=== PATIENT | female | born 1965 | race Two or more races ===

== ENCOUNTER → 2023-03-11 09:44 | Outpatient (REF) | payer BC, SELFPAY ==
--- NOTE | 2023-03-11 10:12 | CA_ITS ---
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 The visually estimated ejection fraction is between 65-70%. Diastolic function is normal for age. Peak GLS is -21.6%, which is within normal limits. Right Ventricle Normal right ventricular cavity size and systolic function. Atria Both atria are normal in size. There is no evidence of interatrial shunt. Aortic Valve Normal aortic valve structure and function. There is no aortic valve stenosis. There is no aortic valve regurgitation. Mitral Valve Normal mitral valve structure and function. There is trace mitral valve regurgitation. There is no mitral valve stenosis. Pulmonic Valve The pulmonic valve is normal. There is trace pulmonic valve regurgitation. Tricuspid Valve Normal tricuspid valve structure. Tricuspid regurgitation envelope is inadequate for calculation of right ventricular systolic pressure. Normal right atrial pressure. Great Vessels The visualized portions of the pulmonary artery and branches are normal. Venous The inferior vena cava is normal in size and collapses greater than 50% with inspiration. Pericardium/Pleural There is no evidence of pericardial effusion. Prior Study Comparison No prior study available for comparison. Measurements 2D Linear Measurements IVSd: 0.85 0.6-0.9/0.6-1.0 cm LVIDd: 4.41 3.9-5.3/4.2-5.9 cm LVIDd Index: 2.69 2.4-3.2/2.2-3.1 cm/m2 LVIDs: 3.29 2.0-3.6 cm LVPWd: 0.67 0.7-1.1 cm LA Diam: 3.20 2.7-3.8/3.0-4.0 cm LAIDs Index: 1.95 1.5-2.3 cm/m2 LV Mass: 127.67 67-162/88-224 g LV Mass Index: 77.85 43-95/49-115 g/m2 LVOT Diam: 2.00 3.0+(-)1.3 cm 2D Systolic Function EF 4C: 68.60 >55% EF 2C: 64.00 >55% EF BiP: 66.10 >55% Mitral Valve MV Pk E: 0.54 MV PK A: 0.43 MV Decel Time: 244.00 E/A: 1.20 E'Lateral: 9.57 E'Medial: 5.22 E/E' Med: 10.30 E/E' Lat: 5.60 PHT: 71.00 MVA PHT: 3.10 Decel Reagan: 2.19 Aortic Valve AoV Pk Jacob: 1.38 AoV Mn Jacob: 0.95 AoV VTI: 0.31 AoV Pk Grad: 8.00 Aov Mn Grad: 4.00 JASVIR Cont.VTI: 2.06 LVOT LVOT Pk Jacob: 1.01 LVOT Mn Jacob: 0.61 LVOT VTI: 0.21 LVOT Pk Grad: 4.00 LVOT Mn Grad: 2.00 LVOT Diam: 2.00 LVOT Area: 3.14 Diastolic Function MV Pk E: 0.54 MV Pk A: 0.43 E/A: 1.20 E'Medial: 5.22 E/E' Med: 10.30 E' Laterial: 9.57 E/E' Lat: 5.60 Right Ventricle TAPSE (mm): 23.90 TVS' Jacob: 11.90 Tricuspid Valve RA Press: 3.00 Great Vessels Aorta Sinus of Valsalva: 3.07 2.0-3.5 cm Ao Asc: 3.50 2.1-3.4 cm Ao Arch: 2.70 Updated in Other Vendor System with Status of Final Carl Madison MD electronically signed on 03/12/2023 2:45:16 PM with status of Final
--- NOTE | 2023-03-11 10:12 | HM_ITS ---
Conclusion: 1. Patient was monitored for total period of 2 days and 23 hours 2. Baseline was normal sinus with average heart of 78 beats per minute 3. No significant pauses noted 4. Rare PACs and PVCs noted 5. Patient reported 4 events with symptoms of heart flash, flutter, correlating with normal sinus rhythm MTDD
== END ==
LOC: HO.CARD 09:44
PROVIDERS: PCP Internal Medicine; Visit Provider Psychiatry & Neurology Neurology
DX: R55 Syncope and collapse (principal)
CPT/HCPCS: 93242; 93306; 93356

== ENCOUNTER → 2023-03-11 10:12 | Outpatient (BNV) | payer BC, SELFPAY | PROVIDERS: PCP Internal Medicine; Visit Provider Internal Medicine Cardiovascular Disease | DX: I44.0 Atrioventricular block, first degree (principal) | CPT/HCPCS: 93244; 93306 ==

== ENCOUNTER 2023-09-07 09:06 | Outpatient (REF) | payer BC, SELFPAY ==
--- NOTE | ~2023-09-07 | FL_ITS ---
EXAMINATION: XR FLUOROSCOPY UPPER GI WITH AIR CLINICAL INFORMATION: Dysphagia. COMPARISON: None. TECHNIQUE: Fluoroscopic air contrast upper GI examination was performed utilizing standard techniques with thin and thick barium and effervescent granules. Numerous spot images were obtained. FINDINGS: Lateral cine images of the oropharynx and hypopharynx demonstrate normal swallow mechanism with normal epiglottic inversion and soft palate elevation. There is trace laryngeal penetration with thick barium. No tracheal penetration, glottic or subglottic aspiration identified. No nasopharyngeal reflux present. Hypopharyngeal structures appear normal without evidence of mass or diverticulum. There is mild cricopharyngeal achalasia present. Dual and single contrast images of the esophagus demonstrate normal caliber and contour. There is mild granular appearance of the mid and distal esophageal mucosa suggesting esophagitis. No evidence of stricture, mass, or large ulcerations identified. Esophageal peristalsis is mildly disorganized. A small type I hiatal hernia is present. Gastroesophageal reflux is seen up to the aortic arch. There are cholecystectomy clips present. Dual contrast and single contrast images of the stomach demonstrated a normal contour. The gastric rugal folds have a thickened appearance. There are multiple foci of contrast pooling in the fundus and body the stomach that may represent small superficial aphthous ulcers. No masses are present. Contrast freely passed into the gastric antrum and duodenal bulb without delay. Single and air-contrast images of the duodenal bulb demonstrate no abnormality. The duodenal sweep has a normal appearance, course, and mucosal fold appearance. The imaged proximal jejunum has a normal fold pattern and caliber. FLUOROSCOPY TIME: 3 minutes 42 seconds Number of Spot Images: 11 Number of Cine: 14 DOSE AREA PRODUCT: 1648 uGy-m2 (microgray-meter squared) FL/FL barium swallow with air IMPRESSION: 1. Trace laryngeal penetration with thick barium. 2. Mild cricopharyngeal achalasia. 3. Mildly disorganized esophageal peristalsis. Granular mucosa in the mid and lower esophagus suggesting reflux esophagitis. 4. Small type I hiatal hernia with mild to moderate gastroesophageal reflux. 5. Thickened appearance the gastric rugal folds. In addition there are multiple foci of contrast pooling in the fundus and body of the stomach. These findings are suggestive of erosive gastritis. Recommend correlation with EGD. This procedure was performed by Suhail Snider PA-C, and supervised by Dr. Evans
== END 2023-09-07 09:07 | disposition home or self-care (01) ==
LOC: HO.XRAY 09:06
PROVIDERS: PCP Internal Medicine; Visit Provider Otolaryngology
DX: R13.10 Dysphagia, unspecified (principal)
CPT/HCPCS: 74221

== ENCOUNTER → 2023-09-07 10:00 | Outpatient (BNV) | payer BC, SELFPAY | PROVIDERS: PCP Internal Medicine; Visit Provider Physician Assistant Surgical | DX: R13.10 Dysphagia, unspecified (principal) | CPT/HCPCS: 74246 ==